=== PATIENT | female | born 1975 | race Caucasian/White ===

== ENCOUNTER → 2016-12-26 | Outpatient (CLI) | payer OTHER | END | disposition home or self-care (01) | LOC: GMAH 18:04 | PROVIDERS: ATTEND Family Medicine | DX: E03.9 Hypothyroidism, unspecified (principal) ==

== ENCOUNTER → 2020-04-20 | Outpatient (CLI) | payer BC | END | disposition home or self-care (01) | LOC: GMA MATASK 14:28 | PROVIDERS: ATTEND Family Medicine | DX: E03.9 Hypothyroidism, unspecified (principal) ==